=== PATIENT | female | born 1990 | race Caucasian/White ===

== ENCOUNTER 2019-08-09 17:38 | Emergency (ER) | payer BC, OTHER ==
[2019-08-09 17:47] VITALS: BP 142/93; PULSE 82; RESP 20; TEMP 97.9
[2019-08-09] MEDS ORDERED: LORATADINE 10 MG TAB PO STA (18:01)
--- NOTE | 2019-08-09 18:04 | ED ---
ENT HPI - General Chief complaint: ENT Stated complaint: EAR ACHE Time Seen by Provider: 08/09/19 17:54 Source: patient Mode of arrival: ambulatory Limitations: no limitations - History of Present Illness Initial comments: Patient is a 29-year-old female presenting to emergency Department with a chief complaint of bilateral ear pain. Patient reports the symptoms began about 2 days ago in both ears. Patient reports she feels fullness with mild pain. Patient denies any pain with traction of the ear. Patient denies any discharge or redness around a year. Patient denies taking medication to alleviate the symptoms. Patient does report seasonal ALLERGIES. Patient denies any headaches, sinus pressure or congestion, sore throat or cough. - Related Data Home Medications Medication Instructions Recorded Confirmed Pnv,Calcium 72/Iron/Folic Acid 1 tab PO DAILY 12/18/14 07/18/15 [ Vitamin with Low Iron] Previous Rx's Medication Instructions Recorded Acetaminophen-Codeine 300-30mg 2 each PO Q4HR PRN #30 tab 07/19/15 [Tylenol w/codeine #3] Ibuprofen [Motrin] 600 mg PO Q6HR PRN #30 tab 07/19/15 Allergies Allergy/AdvReac Type Severity Reaction Status Date / Time Penicillins Allergy Unknown Verified 08/09/19 17:47 Review of Systems ROS Statement: Those systems with pertinent positive or pertinent negative responses have been documented in the HPI. ROS Other: All systems not noted in ROS Statement are negative. Past Medical History Past Medical History: Syncope Additional Past Medical History / Comment(s): Obstetric history:this is her first and she has had care with me since the first trimester. A neg, abs neg, Rub Imm, RPR NR, Hep B neg, HIV NR. At 35 weeks an US showed baby to be >90%ile and a repeat US at 38 weeks showed the baby even bigger. The decision was made to perfrom a primary . History of Any Multi-Drug Resistant Organisms: None Reported Past Surgical History: No Surgical Hx Reported Additional Past Surgical History / Comment(s): lymph node biopsy Past Anesthesia/Blood Transfusion Reactions: No Reported Reaction Past Psychological History: No Psychological Hx Reported Smoking Status: Current every day smoker Past Alcohol Use History: Occasional Past Drug Use History: Marijuana - Past Family History Mother Family Medical History: Cancer, Hypertension, Seizure Disorder, Syncope General Exam Limitations: no limitations General appearance: alert, in no apparent distress Head exam: Present: atraumatic, normocephalic, normal inspection Eye exam: Present: normal appearance Pupils: Present: normal accommodation ENT exam: Present: normal exam, normal oropharynx, mucous membranes moist, TM's normal bilaterally (Fluid in bilateral ears.), normal external ear exam Neck exam: Present: normal inspection, full ROM Respiratory exam: Present: normal lung sounds bilaterally Cardiovascular Exam: Present: regular rate, normal rhythm, normal heart sounds Extremities exam: Present: normal inspection, full ROM Back exam: Present: normal inspection, full ROM Neurological exam: Present: alert, oriented X3 Psychiatric exam: Present: normal affect, normal mood Skin exam: Present: warm, intact, normal color Course Vital Signs 08/09/19 17:45 Temperature 97.9 F Pulse Rate 82 Respiratory 20 Rate Blood Pressure 142/93 O2 Sat by Pulse 99 Oximetry Medical Decision Making - Medical Decision Making Patient is a 29-year-old female presenting to the emergency department with a chief complaint of bilateral ear pain. Based on physical examination patient does have fluid behind both ears. I suspect this to be the cause for the fullness feeling that she continues to have. This is most likely due to ALLERGIES. I have very low suspicion for infection at this time. No pain with traction of the ear. Patient given Zyrtec in the ED and discharged with a prescription of Zyrtec. Strict return parameters were thoroughly discussed the patient was understanding and agreeable. Case discussed with physician. Disposition Clinical Impression: Sensation of fullness in both ears Disposition: HOME SELF-CARE Condition: Stable Instructions (If sedation given, give patient instructions): Earache (ED) Additional Instructions: Please take prescribed medication as directed. Please follow with primary care. Please return to emergency department if symptoms worsen. Is patient prescribed a controlled substance at d/c from ED?: No Referrals: Edwin Gann DO [Primary Care Provider] - 1-2 days Time of Disposition: 18:05
== END 2019-08-09 18:21 | disposition home or self-care (01) ==
LOC: EC 17:38
DX: H92.03 Otalgia, bilateral (principal); F17.200 Nicotine dependence, unspecified, uncomplicated; Z88.0 Allergy status to penicillin; Z91.048 Other nonmedicinal substance allergy status
CPT/HCPCS: 99282

== ENCOUNTER 2019-11-07 22:12 | Emergency (ER) | payer BC, OTHER ==
[2019-11-07 22:33] VITALS: TEMP 98.6
[2019-11-07 23:26] LABS: Appearance,Urine Clear (Clear); Bilirubin,Urine Negative (Negative); Blood,Urine Negative (Negative); Color,Urine Yellow; Glucose,Urine (UA) Negative (Negative); Ketones,Urine Negative (Negative); Leukocyte Esterase,Urine Negative (Negative); Nitrite,Urine Negative (Negative); PH, Urine 5.5 (5.0-8.0); Protein,Urine Negative (Negative); Specific Gravity,Urine 1.029 (1.001-1.035); Urobilinogen,Urine <2.0 mg/dL (<2.0)
--- NOTE | 2019-11-07 23:54 | ED ---
Abdominal Pain HPI - General Chief Complaint: Abdominal Pain Stated Complaint: left side abd pain Time Seen by Provider: 11/07/19 22:40 Source: patient, RN notes reviewed Mode of arrival: ambulatory Limitations: no limitations - History of Present Illness Initial Comments: 29-year-old female presents emergency Department chief complaint of left lower quadrant abdominal pain. Patient states pain started Tuesday was very intense on Tuesday but seemed to improve after 15 minutes. Patient states she felt a popping sensation. She denies any trauma she states that she cannot lift anything or cause any trauma to start the pain. Patient did admit that she has them plan control and states that she has not had a period a while but states that she did start. And believes that she may have ruptured ovarian cyst. Patient has any dysuria, hematuria, flank pain, history kidney stones no nausea vomiting diarrhea constipation or fevers or chills. - Related Data Home Medications Medication Instructions Recorded Confirmed Pnv,Calcium 72/Iron/Folic Acid 1 tab PO DAILY 12/18/14 07/18/15 [ Vitamin with Low Iron] Previous Rx's Medication Instructions Recorded Acetaminophen-Codeine 300-30mg 2 each PO Q4HR PRN #30 tab 07/19/15 [Tylenol w/codeine #3] Ibuprofen [Motrin] 600 mg PO Q6HR PRN #30 tab 07/19/15 Cetirizine HCl [Zyrtec] 10 mg PO DAILY #30 tab 08/09/19 Ibuprofen [Motrin] 600 mg PO Q8HR PRN #30 tab 11/08/19 Allergies Allergy/AdvReac Type Severity Reaction Status Date / Time Penicillins Allergy Unknown Verified 11/07/19 22:33 Review of Systems ROS Statement: Those systems with pertinent positive or pertinent negative responses have been documented in the HPI. ROS Other: All systems not noted in ROS Statement are negative. Past Medical History Past Medical History: Syncope Additional Past Medical History / Comment(s): Obstetric history:this is her first and she has had care with me since the first trimester. A neg, abs neg, Rub Imm, RPR NR, Hep B neg, HIV NR. At 35 weeks an US showed baby to be >90%ile and a repeat US at 38 weeks showed the baby even bigger. The decision was made to perfrom a primary . History of Any Multi-Drug Resistant Organisms: None Reported Past Surgical History: No Surgical Hx Reported Additional Past Surgical History / Comment(s): lymph node biopsy Past Anesthesia/Blood Transfusion Reactions: No Reported Reaction Past Psychological History: No Psychological Hx Reported Smoking Status: Current every day smoker Past Alcohol Use History: Occasional Past Drug Use History: Marijuana - Past Family History Mother Family Medical History: Cancer, Hypertension, Seizure Disorder, Syncope General Exam Limitations: no limitations General appearance: alert, in no apparent distress Head exam: Present: atraumatic, normocephalic, normal inspection Eye exam: Present: normal appearance, PERRL, EOMI. Absent: scleral icterus, conjunctival injection, periorbital swelling ENT exam: Present: normal exam, normal oropharynx, mucous membranes moist, TM's normal bilaterally Neck exam: Present: normal inspection. Absent: tenderness, meningismus, lymphadenopathy Respiratory exam: Present: normal lung sounds bilaterally. Absent: respiratory distress, wheezes, rales, rhonchi, stridor Cardiovascular Exam: Present: regular rate, normal rhythm, normal heart sounds. Absent: systolic murmur, diastolic murmur, rubs, gallop, clicks GI/Abdominal exam: Present: soft, tenderness (Mild left lower), normal bowel sounds. Absent: distended, guarding, rebound, rigid Back exam: Absent: CVA tenderness (R), CVA tenderness (L) Neurological exam: Present: alert Skin exam: Present: warm, dry, intact, normal color. Absent: rash Course Vital Signs 11/07/19 22:30 Temperature 98.6 F Pulse Rate 88 Respiratory 20 Rate Blood Pressure 145/84 O2 Sat by Pulse 100 Oximetry Medical Decision Making - Medical Decision Making Ultrasound reveals a left-sided 3 cm ovarian cyst. Patient urinalysis unremarkable. Patient we discharged with ibuprofen return parameters were discussed. - Lab Data Lab Results 11/07/19 11/07/19 Range/Units 23:00 23:00 Urine Color Yellow Urine Appearance Clear (Clear) Urine pH 5.5 (5.0-8.0) Ur Specific [place] 1.029 (1.001-1.035) Urine Protein Negative (Negative) Urine Glucose (UA) Negative (Negative) Urine Ketones Negative (Negative) Urine Blood Negative (Negative) Urine Nitrite Negative (Negative) Urine Bilirubin Negative (Negative) Urine Urobilinogen <2.0 (<2.0) mg/dL Ur Leukocyte Esterase Negative (Negative) Urine HCG, Qual Not Detected (Not Detectd) Disposition Clinical Impression: Ovarian cyst Disposition: HOME SELF-CARE Condition: Stable Instructions (If sedation given, give patient instructions): Ovarian Cyst (ED), Ruptured Ovarian Cyst (ED) Additional Instructions: Please return to the Emergency Department if symptoms worsen or any other concerns. Prescriptions: Ibuprofen [Motrin] 600 mg PO Q8HR PRN #30 tab PRN Reason: Pain Is patient prescribed a controlled substance at d/c from ED?: No Referrals: Edwin Gann DO [Primary Care Provider] - 1-2 days Time of Disposition: 00:30
--- NOTE | 2019-11-08 00:19 | US ---
EXAMINATION TYPE: US transvaginal DATE OF EXAM: 11/08/2019 COMPARISON: NONE CLINICAL HISTORY: LLQ pain. LLQ pain x 3 days. . . Retroverted uterus. TECHNIQUE: Transvaginal. Date of LMP: 11/03/2019 EXAM MEASUREMENTS: Uterus: 7.9 4.7 x 4.2 cm Endometrial Stripe: 0.40 cm Right Ovary: 2.8 x 1.9 x 1.5 cm Left Ovary: 3.5 x 2.4 x 2.3 cm 1. Uterus: Appears slightly heterogeneous. Anteverted. Appeared to be retroverted at end of exam. Hy perechoic area seen measurin.2 x 0.2 x 0.2 cm. 2. Endometrium: ?Minimal fluid in cervix. 3. Right Ovary: Follicles seen. Arterial and venous waveforms seen. 4. Left Ovary: Posterior to uterus. Arterial waveform seen. Limited venous waveform possibly due to depth and position. Anechoic area seen measurin.0 x 2.1 x 1.6 cm. 5. Bilateral Adnexa: Appear to be wnl. 6. Posterior cul-de-sac: Appears to be wnl. IMPRESSION: Left ovarian cyst. No solid adnexal mass. No evidence of ovarian torsion.
[2019-11-08 00:51] VITALS: BP 136/74; PULSE 78; RESP 18
== END 2019-11-08 00:40 | disposition home or self-care (01) ==
LOC: EC 22:12
DX: N83.202 Unspecified ovarian cyst, left side (principal); F17.200 Nicotine dependence, unspecified, uncomplicated; Z88.0 Allergy status to penicillin
CPT/HCPCS: 76830; 81003; 81025; 93975; 99284

== ENCOUNTER 2025-02-15 12:25 | Day surgery (SDC) | payer BC, OTHER ==
[~2025-02-15 12:25] MED LIST: HYDROmorphone 0.5 MG/0.5 ML SYRINGE IVP PRN; LIDOCAINE 1% (10MG/ML) FOR IV START INTRADERMA PRN; Pre Op ABX Message 1 EACH MISC MISCELLANE ONE; fentaNYL (PF) 50 MCG/ML 2 ML AMP IVP PRN
[2025-02-15] MEDS: LACTATED RINGERS 1,000 ML IV SCH (13:03)
[2025-02-15] MEDS: SCOPOLAMINE 1 MG/72 HR PATCH TRANSDERM STA (13:11)
[2025-02-15] MEDS: DEXAMETHASONE SOD PHOSPHATE 4 MG/ML 1 ML VIAL IV ONE (13:11)
[2025-02-15] MEDS: ONDANSETRON 4 MG/2 ML VIAL IVP ONE (13:11)
[2025-02-15] MEDS: MIDAZOLAM 2 MG/2 ML VIAL IV PRN (13:12)
[2025-02-15] MEDS: IV FLUID CONTINUATION 1,000 ML IV ONE (13:22)
[2025-02-15] MEDS ORDERED: SUCCINYLCHOLINE CHLORIDE 200 MG/10 ML VIAL IV ONE (14:45)
[2025-02-15] MEDS ORDERED: PROPOFOL 10 MG/ML 20 ML VIAL IV ONE (14:45)
[2025-02-15] MEDS ORDERED: KETOROLAC 15 MG/ML 1 ML VIAL ONE (14:45)
[2025-02-15] MEDS ORDERED: fentaNYL (PF) 50 MCG/ML 2 ML AMP ONE (14:45)
[2025-02-15] MEDS ORDERED: LIDOCAINE 1% INJ 10MG/ML (20 ML MDV) ONE (14:45)
[2025-02-15] MEDS: LIDOCAINE 1%-EPI 1:100,000 20 ML VIAL SQ ONE ×3 (15:11→15:12)
[2025-02-15 15:56] VITALS: TEMP 97
[2025-02-15 17:11] VITALS: BP 143/78; PULSE 78; RESP 18
--- NOTE | 2025-02-16 12:26 | P.OP ---
Date of Procedure: 02/16/25 Preoperative Diagnosis: Back mass Postoperative Diagnosis: Back mass Procedure(s) Performed: Back mass excision Anesthesia: BECK local Surgeon: Black Porras Pathology: other (Back mass) Condition: stable Disposition: PACU Indications for Procedure: Back mass x 6 months Operative Findings: Fatty back mass Description of Procedure: Patient was brought to the operating suite where she was cleaned and draped in sterile fashion a timeout was performed and everyone agreed with the admission resited. Next a local anesthetic was used anesthetize the incision a #15 blade was used to make a 5 cm incision over the area I dissected down to the muscle fascia and encountered a large lipoma measuring 5 x 5 x 3 cm. This was excised and removed out of the body intact. A hemostatic timeout was performed and no bleeding was observed. The patient tolerated procedure well the deep dermal area was closed using 2-0 Vicryl suture in an interrupted fashion. Next the incision was closed using 4-0 Vicryl suture in interrupted fashion a pressure dressing was placed. The patient tolerated procedure well and transported to PACU in stable condition thank you this end of the dictation
== END 2025-02-15 17:11 | disposition home or self-care (01) ==
LOC: OR 12:25
PROVIDERS: ATTEND Surgery
DX: R22.2 Localized swelling, mass and lump, trunk (principal); D17.1 Benign lipomatous neoplasm of skin and subcutaneous tissue of trunk
CPT/HCPCS: 81025; 88304; 21931; J2250; J0330; J1100; J2405; J2003; J3010; J1885; J2704